=== PATIENT | male | born 1985 | race Caucasian/White ===

== ENCOUNTER 2018-10-24 13:57 | Emergency (ER) | payer MEDICAID, OTHER ==
[2018-10-24] MEDS: LIDOCAINE 1% (MDV) 20 ML INJ SC (15:48)
[2018-10-24] MEDS: ONDANSETRON (ODT) 4 MG TAB ODT (15:52)
[2018-10-24] MEDS: HYDROCODONE/APAP (5/325) TAB PO (15:53)
[2018-10-24] MEDS: DIPHTH/TET/ACEL PERTUSS (ADULT) 0.5 ML VIAL IM* (15:55)
== END 2018-10-24 16:35 | disposition home or self-care (01) ==
LOC: FTE 13:57
DX: S61.412A Laceration without foreign body of left hand, initial encounter (principal); W11.XXXA Fall on and from ladder, initial encounter; Y92.9 Unspecified place or not applicable; Z23 Encounter for immunization
CPT/HCPCS: 12002; 90471; 90715; 99283-25

== ENCOUNTER 2018-10-26 14:34 | Emergency (ER) | payer MEDICAID ==
[2018-10-26] MEDS: CEFTRIAXONE 1 GM INJ IM (16:23)
== END 2018-10-26 17:07 | disposition home or self-care (01) ==
LOC: FTE 14:34
DX: S60.552A Superficial foreign body of left hand, initial encounter (principal); S61.412D Laceration without foreign body of left hand, subsequent encounter; W11.XXXA Fall on and from ladder, initial encounter; Y92.9 Unspecified place or not applicable; Z48.01 Encounter for change or removal of surgical wound dressing
CPT/HCPCS: 73130; 73130-LT; 96372; 99284-25

== ENCOUNTER 2018-11-02 11:53 | Emergency (ER) | payer MEDICAID | END 2018-11-02 14:22 | disposition home or self-care (01) | LOC: FTE 11:53 | DX: Z48.02 Encounter for removal of sutures (principal) | CPT/HCPCS: 99281; Z7502 ==

== ENCOUNTER 2018-11-22 10:45 | Emergency (ER) | payer MEDICAID | END 2018-11-22 13:15 | disposition home or self-care (01) | LOC: FTE 13:15 | DX: G51.0 Bell's palsy (principal); L90.5 Scar conditions and fibrosis of skin | CPT/HCPCS: 99283; Z7502 ==